=== PATIENT | female | born 1980 | race American Indian/Alaskan Native ===

== ENCOUNTER 2019-01-18 03:02 | Emergency (ER) | payer BC ==
[2019-01-18 03:41] LABS: Basophils # (Auto) 0.1 K/mm3 (0.0-0.1); Basophils % (Auto) 1.3 % (0.0-1.8); Eosinophils # (Auto) 0.4 K/mm3 (0.0-0.4); Eosinophils % (Auto) 3.7 % (0.0-4.3); Hematocrit 39.9 % (30.3-42.9); Hemoglobin 13.3 gm/dl (10.1-14.3); Lymphocytes # (Auto) 4.3 K/mm3 (1.2-5.4); Lymphocytes % (Auto) 41.9 % (13.4-35.0); Mean Corpuscular HGB Conc 33 % (30-34); Mean Corpuscular Volume 81 fl (79-97); Monocytes # (Auto) 0.9 K/mm3 (0.0-0.8); Monocytes % (Auto) 8.6 % (0.0-7.3); Platelet Count 299 K/mm3 (140-440); Red Blood Count 4.95 M/mm3 (3.65-5.03); Red Cell Distribution Width 14.6 % (13.2-15.2)
[2019-01-18 03:55] LABS: BUN/Creatinine Ratio 13; Blood Urea Nitrogen 9 mg/dL (7-17); Calcium 9.2 mg/dL (8.4-10.2); Hemolysis Index 2
--- NOTE | 2019-01-18 04:03 | XRay Report ---
PROCEDURE: XR CHEST 1V AP TECHNIQUE: Chest radiograph single view. HISTORY: Chest Pain COMPARISONS: None . FINDINGS: No mediastinal shift. Cardiac silhouette is not enlarged. No pneumothorax, effusion, or focal pulmona ry opacity identified. No acute skeletal findings. IMPRESSION: No acute pulmonary finding identified. This document is electronically signed by Roberto Woody MD., January 18 2019 04:01:12 AM ET
[2019-01-18] MEDS ORDERED: LIDOCAINE VISCOUS 2% PO ONE (04:18)
[2019-01-18] MEDS ORDERED: IBUPROFEN PO ONE (04:18)
[2019-01-18] MEDS ORDERED: PROVENTIL IH ONE (04:18)
[2019-01-18] MEDS ORDERED: FLONASE NS ONE (04:18)
--- NOTE | 2019-01-18 04:23 | Emergency Department Report ---
ED General Adult HPI - General Chief complaint: Chest Pain Stated complaint: MATILDA/CHEST TIGHTNESS Source: patient, RN notes reviewed Mode of arrival: Ambulatory Limitations: No Limitations - History of Present Illness Initial comments: Primary care Dr.: Patient states her primary care doctor is in [place]. This is a 38-year-old female. The patient is not known to this provider previously. Her past medical history includes arthritis, asthma, diabetes, gastritis, currently being worked up and evaluated by outpatient electric blanket packer for uveitis. She is not sure if she has lupus or scleroderma. She does not have a formal rheumatologic diagnosis as of yet, with the exception of uveitis. Patient does indicate that she takes Humira. Patient presents to the emergency room with a complaint of chest wall pain, nonproductive cough, nasal congestion and facial congestion, which she states make it difficult to breathe, and throat discomfort. The patient reports that she was treated for strep throat last week with antibiotics. She's been having persistent facial fullness, nasal congestion, nasal drainage which make it difficult to breathe. She is coughing, and has central and left-sided chest wall pain. She has nausea but no vomiting. She does not have diaphoresis. She has not taken aspirin. She states that she is not . She denies DVT, pulmonary embolism risk factors. The patient reports no family history of heart disease that she is aware of. Symptoms are typically worse at night, and when she lays down. -: days(s) Location: head, face, mouth Radiation: non-radiation Quality: aching Consistency: intermittent Improves with: rest Worsens with: movement, other - Related Data Previous Rx's Medication Instructions Recorded Last Taken Type Acetaminophen [Non-Aspirin Extra 500 mg PO Q6HR PRN #30 tablet 01/18/19 Unknown Rx Strength] Albuterol Sulfate [Proair 90 mcg IH Q4HR PRN #2 [email or web address] 01/18/19 Unknown Rx Respiclick] Benzonatate [Tessalon Perles] 100 mg PO Q8HR PRN #30 capsule 01/18/19 Unknown Rx Ibuprofen [Motrin] 600 mg PO Q8H PRN #30 tablet 01/18/19 Unknown Rx Allergies Allergy/AdvReac Type Severity Reaction Status Date / Time No Known Allergies Allergy Unverified 01/18/19 03:11 ED Review of Systems ROS: Stated complaint: MATILDA/CHEST TIGHTNESS Other details as noted in HPI Constitutional: malaise. denies: fever Eyes: denies: eye discharge ENT: congestion Respiratory: cough Cardiovascular: chest pain Gastrointestinal: denies: vomiting Genitourinary: denies: dysuria Musculoskeletal: arthralgia, myalgia Skin: denies: lesions Neurological: weakness Psychiatric: anxiety ED Past Medical Hx - Past Medical History Hx Diabetes: Yes Hx Arthritis: Yes Hx Asthma: Yes Additional medical history: Gastritis, strep throat - Surgical History Past Surgical History?: Yes Hx Cholecystectomy: Yes Additional Surgical History: D/C - Social History Smoking Status: Never Smoker Substance Use Type: Alcohol - Medications Home Medications: Home Medications Medication Instructions Recorded Confirmed Last Taken Type Acetaminophen [Non-Aspirin Extra 500 mg PO Q6HR PRN #30 tablet 01/18/19 Unknown Rx Strength] Albuterol Sulfate [Proair 90 mcg IH Q4HR PRN #2 aer.[email or web address] 01/18/19 Unknown Rx Respiclick] Benzonatate [Tessalon Perles] 100 mg PO Q8HR PRN #30 capsule 01/18/19 Unknown Rx Ibuprofen [Motrin] 600 mg PO Q8H PRN #30 tablet 01/18/19 Unknown Rx ED Physical Exam - General Limitations: No Limitations General appearance: alert, in no apparent distress - Head Head exam: Present: atraumatic, normocephalic - Eye Eye exam: Present: normal appearance, EOMI. Absent: nystagmus - ENT ENT exam: Present: normal exam, normal orophraynx, mucous membranes moist, TM's normal bilaterally, normal external ear exam, other (there is maxillary sinus tenderness.) - Neck Neck exam: Present: normal inspection, full ROM. Absent: tenderness, meningismus - Respiratory Respiratory exam: Present: normal lung sounds bilaterally, chest wall tenderness. Absent: respiratory distress, wheezes, rales, rhonchi, stridor - Cardiovascular Cardiovascular Exam: Present: regular rate, normal rhythm, normal heart sounds. Absent: bradycardia, tachycardia, irregular rhythm, systolic murmur, diastolic murmur, rubs, gallop - GI/Abdominal GI/Abdominal exam: Present: soft. Absent: distended, tenderness, guarding, rebound, rigid, pulsatile mass - Extremities Exam Extremities exam: Present: normal inspection, full ROM, other (2+ pulses noted in the bilateral upper, lower extremities. Compartments soft. No long bony tenderness. The pelvis is stable.). Absent: pedal edema, joint swelling, calf tenderness - Back Exam Back exam: Present: normal inspection, full ROM. Absent: tenderness, CVA tenderness (R), CVA tenderness (L), paraspinal tenderness, vertebral tenderness - Neurological Exam Neurological exam: Present: alert, oriented X3, normal gait, other (Extraocular movements intact. Tongue midline. No facial droop. Facial sensation intact to light touch in the V1, V2, V3 distribution bilaterally. 5 and 5 strength in 4 extremities.. Sensation is intact to light touch in 4 extremities.). Absent: motor sensory deficit - Psychiatric Psychiatric exam: Present: anxious - Skin Skin exam: Present: warm, dry, intact, normal color. Absent: rash ED Course Vital Signs 01/18/19 01/18/19 01/18/19 03:08 04:01 04:06 Temperature 98.1 F 98.3 F Pulse Rate 78 73 73 Respiratory 16 22 13 Rate Blood Pressure 136/83 119/68 Blood Pressure 153/70 [Left] O2 Sat by Pulse 99 99 100 Oximetry 01/18/19 04:15 Temperature Pulse Rate 77 Respiratory 13 Rate Blood Pressure 119/68 Blood Pressure [Left] O2 Sat by Pulse 100 Oximetry - Reevaluation(s) Reevaluation #1: 01/18/19 05:37 Differential diagnosis, including but not limited to: Bronchitis, sinusitis, costochondritis, pneumonia, pericarditis, myocarditis, acute coronary syndrome, nasal congestion Assessment and plan: 38-year-old female, not tachycardic, not hypoxic, low risk by well's criteria, PERC negative, with reproducible chest wall pain in the context of facial congestion, nasal congestion, cough, and recent sore throat. She reports that she was recently treated for strep throat. Given lack of tachycardia, lack of fever, normal troponin 2, pericarditis, myocarditis is very unlikely. Given the aforementioned findings, patient at very low risk for major adverse cardiac event, this is very unlikely to be acute coronary syndrome. The patient declined NSAIDs because of her "gastritis." Nevertheless, the patient does not appear to have an emergent medical condition at this time. Her symptoms were treated supportively. She can follow-up with her outpatient primary care doctor or local side panel hanger to complete her cardiac risk stratification. We will discharge her with prescriptions for supportive care, and for symptom relief. low risk by heart score, diego score for m.a.c.e. ED Medical Decision Making - Lab Data Result diagrams: 01/18/19 03:24 01/18/19 03:24 Vital Signs 01/18/19 01/18/19 01/18/19 03:08 04:01 04:06 Temperature 98.1 F 98.3 F Pulse Rate 78 73 73 Respiratory 16 22 13 Rate Blood Pressure 136/83 119/68 Blood Pressure 153/70 [Left] O2 Sat by Pulse 99 99 100 Oximetry 01/18/19 04:15 Temperature Pulse Rate 77 Respiratory 13 Rate Blood Pressure 119/68 Blood Pressure [Left] O2 Sat by Pulse 100 Oximetry Lab Results 01/18/19 01/18/19 01/18/19 Range/Units 03:24 03:24 03:24 WBC 10.3 (4.5-11.0) K/mm3 RBC 4.95 (3.65-5.03) M/mm3 Hgb 13.3 (10.1-14.3) gm/dl Hct 39.9 (30.3-42.9) % MCV 81 (79-97) fl MCH 27 L (28-32) pg MCHC 33 (30-34) % RDW 14.6 (13.2-15.2) % Plt Count 299 (140-440) K/mm3 Lymph % (Auto) 41.9 H (13.4-35.0) % [place] % (Auto) 8.6 H (0.0-7.3) % Eos % (Auto) 3.7 (0.0-4.3) % Baso % (Auto) 1.3 (0.0-1.8) % Lymph # 4.3 (1.2-5.4) K/mm3 [place] # 0.9 H (0.0-0.8) K/mm3 Eos # 0.4 (0.0-0.4) K/mm3 Baso # 0.1 (0.0-0.1) K/mm3 Seg Neutrophils % 44.5 (40.0-70.0) % Seg Neutrophils # 4.6 (1.8-7.7) K/mm3 Chloride 102.7 (98-107) mmol/L Carbon Dioxide 24 (22-30) mmol/L Anion Gap 16 mmol/L BUN 9 (7-17) mg/dL Creatinine 0.7 (0.7-1.2) mg/dL Estimated GFR > 60 ml/min BUN/Creatinine Ratio 13 % Glucose 101 H (65-100) mg/dL Calcium 9.2 (8.4-10.2) mg/dL Troponin T < 0.010 (0.00-0.029) ng/mL HCG, Qual Negative (Negative) 01/18/19 Range/Units 04:56 WBC (4.5-11.0) K/mm3 RBC (3.65-5.03) M/mm3 Hgb (10.1-14.3) gm/dl Hct (30.3-42.9) % MCV (79-97) fl MCH (28-32) pg MCHC (30-34) % RDW (13.2-15.2) % Plt Count (140-440) K/mm3 Lymph % (Auto) (13.4-35.0) % [place] % (Auto) (0.0-7.3) % Eos % (Auto) (0.0-4.3) % Baso % (Auto) (0.0-1.8) % Lymph # (1.2-5.4) K/mm3 [place] # (0.0-0.8) K/mm3 Eos # (0.0-0.4) K/mm3 Baso # (0.0-0.1) K/mm3 Seg Neutrophils % (40.0-70.0) % Seg Neutrophils # (1.8-7.7) K/mm3 Chloride (98-107) mmol/L Carbon Dioxide (22-30) mmol/L Anion Gap mmol/L BUN (7-17) mg/dL Creatinine (0.7-1.2) mg/dL Estimated GFR ml/min BUN/Creatinine Ratio % Glucose (65-100) mg/dL Calcium (8.4-10.2) mg/dL Troponin T < 0.010 (0.00-0.029) ng/mL HCG, Qual (Negative) sodium 138 potassium 4.42 - EKG Data -: EKG Interpreted by Nh EKG shows normal: sinus rhythm Rate: normal - EKG Data 01/18/19 05:40 EKG #1 shows a normal sinus, 64 beats for minute, normal axis, normal intervals, unremarkable EKG, not consistent with ST elevation myocardial infarction. EKG #2 is to be unremarkable and unchanged from prior. EKG is not consistent with ST elevation myocardial infarction. - Radiology Data Radiology results: report reviewed, image reviewed X-ray of the chest is negative for acute disease Critical care attestation.: If time is entered above; I have spent that time in minutes in the direct care of this critically ill patient, excluding procedure time. ED Disposition Clinical Impression: Chest wall pain, Bronchitis Disposition: DC- TO HOME OR SELFCARE Is pt being admited?: No Does the pt Need Aspirin: No Condition: Stable Instructions: Chest Pain (ED), Acute Bronchitis (ED) Additional Instructions: As we discussed, symptoms unlikely to be coming from heart attack, blood clot in the lung, or dangerous/life-threatening cause of chest wall pain. Symptoms likely to be coming from irritation in the muscles and connective tissue in the chest wall, and superimposed bronchitis and or nasal congestion. Continue current outpatient medications, with the exception of Humira, and please follow- up with your primary care doctor or electric blanket packer to resume your immune s uppressant medications. The patient takes additional medications which suppress or depressed immune system, she should follow up with her primary care doctor or prescribing physician for clearance to return to immune modulating medications. Patient may expect symptoms to last for the next week or so. Patient may use a vaporizer or humidifier at home to help out with breathing. The patient should follow-up with a primary care doctor or side panel hanger within the next 3-5 days for her complaint of chest wall pain. Please return to the emergency room right away with new, worsening or different symptoms, or symptoms not present on the initial emergency room evaluation. Referrals: FERNANDO LANDEROS MD [Staff Physician] - 3-5 Days (cardiology) VALENTINA NORIEGA MD [Staff Physician] - 3-5 Days (cardiology )
[2019-01-18 04:30] VITALS: BP 119/68
[2019-01-18] MEDS ORDERED: TYLENOL PO STA (05:13)
== END 2019-01-18 05:55 | disposition home or self-care (01) ==
LOC: ED 03:02
DX: J45.909 Unspecified asthma, uncomplicated (principal); E11.9 Type 2 diabetes mellitus without complications; M19.90 Unspecified osteoarthritis, unspecified site; Z90.49 Acquired absence of other specified parts of digestive tract
CPT/HCPCS: 36415; 71045; 80048; 84484; 84703; 85025; 93005; 93010